=== PATIENT | male | born 1965 | race Caucasian/White ===

== ENCOUNTER 2023-10-29 16:24 | Outpatient (RCR) | payer BC, SELFPAY | END 2023-10-29 23:59 | disposition home or self-care (01) | LOC: RPT 16:24 | PROVIDERS: ATTENDING PHYSICIAN Nurse Practitioner Family | DX: M54.51 Vertebrogenic low back pain (principal) | CPT/HCPCS: 97110; 97161 ==

== ENCOUNTER → 2023-12-19 19:20 | Outpatient (REF) | payer BC, SELFPAY | LOC: PAVMRI 19:20 | PROVIDERS: ATTENDING PHYSICIAN Internal Medicine | DX: M54.16 Radiculopathy, lumbar region (principal) | CPT/HCPCS: 72148 ==